=== PATIENT | male | born 1940 | race African-American/Black ===

== ENCOUNTER 2018-03-01 10:43 | Inpatient (IN) | payer MEDICARE, BC ==
[~2018-03-01] VITALS: Ht 182.9 cm; Wt 96.2 kg
[~2018-03-01 10:43] MED LIST: ASCO-316 PO; ASPI-1159 PO; CHOL500010 PO; COD1CAPS7 PO; CYAN250010 PO; GLIP10TA10 PO; LOVA40TA73 PO; RAMI10CA19 PO; VITA400T7 PO
[2018-03-01] MEDS ORDERED: GLUC-113 PO (11:34)
[2018-03-01] MEDS ORDERED: METF-416 MT (11:34)
[2018-03-01] MEDS ORDERED: COR3 MT (11:34)
[2018-03-01] MEDS ORDERED: CLOP75TA16 MT (11:34)
[2018-03-01] MEDS ORDERED: LOSA50TA20 MT (11:34)
[2018-03-01] MEDS ORDERED: IODIXANOL 320MG/ML 100 ML BOTTLE IV ONE (12:25)
[2018-03-01] MEDS ORDERED: LIDOCAINE HCL 1% 20ML VIAL (Pyxis) INJ ONE (12:25)
[2018-03-01] MEDS ORDERED: MIDAZOLAM HCL 2 MG/2 ML VIAL ONE (12:43)
[2018-03-01] MEDS ORDERED: FENTANYL CITRATE/PF 50MCG/ML 2ML VIAL ONE (12:43)
[2018-03-01] MEDS ORDERED: IOHEXOL-300 100 ML BOTTLE ONE (13:11)
[2018-03-01] MEDS ORDERED: CLOPIDOGREL 75MG TABLET ONE (13:45)
[2018-03-01] MEDS ORDERED: ASPIRIN 325MG TABLET ONE (13:45)
[2018-03-01] MEDS ORDERED: ONDANSETRON HCL 4MG/2ML INJ IV PRN (13:45)
[2018-03-01] MEDS ORDERED: ATROPINE SULFATE 1MG/10ML SYR IV PRN (13:45)
[2018-03-01] MEDS ORDERED: ACETAMINOPHEN 325MG TABLET PO PRN (13:45)
[2018-03-01] MEDS ORDERED: HEPARIN SODIUM 1,000 UNIT/1ML VIAL IV ONE ×2 (14:38→15:16)
[2018-03-01 15:37] VITALS: BP 140/77
[2018-03-01] MEDS ORDERED: NICARDIPINE 100MCG/ML 10ML VIAL (CATH LAB) IV ONE (15:43)
[2018-03-01] MEDS ORDERED: NITROGLYCERIN 50MCG/ML 10ML VIAL (CATH LAB) IV ONE (15:43)
[2018-03-01 16:00] VITALS: BP 140/82
[2018-03-01 17:56] VITALS: BP 167/73
[2018-03-01 20:00] VITALS: BP 116/66
[2018-03-01 22:00] VITALS: BP 115/62
[2018-03-02] VITALS (7 sets, daily range): BP systolic 114–165; BP diastolic 66–76
[2018-03-02 07:17] LABS: EOSINOPHILS % 4.9 % (0.0-5.0); HEMATOCRIT. 36.1 % (42.0-52.0); HEMOGLOBIN. 11.7 g/dL (14.0-18.0); LYMPHOCYTES % 29.3 % (20.0-50.0); MEAN CORPUSCULAR HEMOGLOBIN 26.8 pg (28.0-32.0); MEAN CORPUSCULAR VOLUME 82.6 fL (80.0-94.0); MEAN PLATELET VOLUME 8.5 fl (7.4-10.4); MONOCYTES % 11.9 % (2.0-8.0); NEUTROPHILS % 52.9 % (40.0-76.0); PLATELET 260 x1000/uL (130-400); RED BLOOD CELL COUNT 4.36 mill/uL (4.7-6.1); RED CELL DISTRIBUTION WIDTH 15.4 % (11.6-14.6)
[2018-03-02 08:30] LABS: CHLORIDE 105 mEq/L (98-107)
[2018-03-02] MEDS ORDERED: ASPIRIN 325MG TABLET PO SCH (09:00)
[2018-03-02] MEDS ORDERED: CLOPIDOGREL 75MG TABLET PO SCH (09:00)
== END 2018-03-02 11:18 | disposition home or self-care (01) | DRG 247 ==
LOC: CCL 10:43 → 3WST 10:44
PROVIDERS: ADMIT Specialist; ATTEND Specialist
PROC: 027035Z Dilation of Coronary Artery, One Artery with Two Drug-eluting Intraluminal Devices, Percutaneous Approach (ICD-10-PCS; principal; 2018-03-01)
PROC: 4A023N7 Measurement of Cardiac Sampling and Pressure, Left Heart, Percutaneous Approach (ICD-10-PCS; 2018-03-01)
PROC: B2111ZZ Fluoroscopy of Multiple Coronary Arteries using Low Osmolar Contrast (ICD-10-PCS; 2018-03-01)
PROC: B2151ZZ Fluoroscopy of Left Heart using Low Osmolar Contrast (ICD-10-PCS; 2018-03-01)
DX: I25.10 Atherosclerotic heart disease of native coronary artery without angina pectoris (principal); I10 Essential (primary) hypertension; E78.5 Hyperlipidemia, unspecified; E11.9 Type 2 diabetes mellitus without complications; Z79.02 Long term (current) use of antithrombotics/antiplatelets
CPT/HCPCS: 36415; 80048; 82962; 85347; 92928; 93005; 93458; 93571; C1769; C1874; C1887; C1893; J1644; J2250; J3010; J3490; Q9967